=== PATIENT | female | born 1980 | race Caucasian/White ===

== ENCOUNTER 2018-03-26 11:45 | Emergency (ER) | payer MEDICAID ==
[~2018-03-26] VITALS: Ht 170.2 cm; Wt 82.6 kg
[2018-03-26 11:51] VITALS: BP 123/72
[2018-03-26] MEDS ORDERED: LIDOCAINE MPF 1% - 5 mL VIAL 5 ML ONE ×2 (12:51)
[2018-03-26] MEDS: CLINDAMYCIN 150 MG CAP PO ONE (12:53)
[2018-03-26] MEDS: LIDOCAINE 1% 500 MG/50 ML VIAL INJ ONE (12:54)
[2018-03-26] MEDS: NEOMYCIN/POLYMYXIN/BACITRACIN 0.9 GM/1 PKT TP ONE (13:52)
[2018-03-26 14:15] VITALS: BP 123/72
== END 2018-03-26 14:16 | disposition home or self-care (01) ==
LOC: MED 11:45
DX: S51.012A Laceration without foreign body of left elbow, initial encounter (principal); Z88.0 Allergy status to penicillin; W01.0XXA Fall on same level from slipping, tripping and stumbling without subsequent striking against object, initial encounter; Y93.E9 Activity, other interior property and clothing maintenance; Y92.009 Unspecified place in unspecified non-institutional (private) residence as the place of occurrence of the external cause; Y99.8 Other external cause status
CPT/HCPCS: 12002; 90471; 90715; 99283; J2001

== ENCOUNTER 2018-04-13 08:54 | Emergency (ER) | payer MEDICAID ==
[~2018-04-13] VITALS: Ht 177.8 cm; Wt 77.1 kg
--- NOTE | 2018-04-13 08:59 | NUR ---
PT AMBULATED TO ER BED 02
[2018-04-13 09:02] VITALS: BP 102/71
--- NOTE | 2018-04-13 09:08 | NUR ---
BIB FOR LEFT ELBOW SUTURE REVOVAL. DENIES PAIN. WOUND C/D/I. MED HX: DENIES PATIENT STATES PAIN OF 0/10 AT THIS TIME; VSS; PATIENT POSITIONED FOR COMFORT; HOB ELEVATED; BEDRAILS UP X2; BED DOWN. ER MD MADE AWARE OF PT STATUS.
--- NOTE | 2018-04-13 09:50 | NUR ---
LEFT ELBOW SUTURE REVOVAL BY .
[2018-04-13 09:57] VITALS: BP 102/71
--- NOTE | 2018-04-13 09:57 | NUR ---
Patient discharged with v/s stable. Written and verbal after care instructions given and explained. Patient verbalized understanding. Ambulatory with steady gait. All questions addressed prior to discharge. Advised to follow up with PMD.
== END 2018-04-13 09:57 | disposition home or self-care (01) ==
LOC: MED 08:54
DX: S51.012D Laceration without foreign body of left elbow, subsequent encounter (principal); Z88.0 Allergy status to penicillin; W19.XXXD Unspecified fall, subsequent encounter
CPT/HCPCS: 99281; 99282